=== PATIENT | female | born 1995 | race Caucasian/White ===

== ENCOUNTER 2018-12-15 03:32 | Emergency (ER) | payer MEDICAID, OTHER ==
[2018-12-15] MEDS ORDERED: NS 1,000 ML IV ONE (03:48)
[2018-12-15] MEDS ORDERED: LORazepam 2 MG/ML INJ IVP ONE (03:48)
[2018-12-15 06:05] VITALS: BP 110/75
--- NOTE | 2018-12-15 06:09 | EDPHY ---
H & P Stated Complaint: Cocaine and anxiety Time Seen by Provider: 12/15/18 03:35 HPI/ROS: HPI The patient presents with palpitations, sensation of impending doom, shortness of breath for the last 2-3 hours. Symptoms have been continuous and are getting somewhat worse. The patient drink about 2-3 alcoholic drinks last night. She then used cocaine several occasions, intranasally and orally throughout the evening into the microbiology technician. She used about 0.5 g total she believes. She then used a dab of marijuana. After the marijuana, she began to feel palpitations, lightheaded, like she might . She tried to go from a friend's house to her house and a taxi, however asked to be taken to the hospital because she was worried that she was going to . She has used both cocaine and marijuana in the past, however admits to using more cocaine than usual. REVIEW OF SYSTEMS 10 systems were reviewed and negative with the exception of the elements mentioned in the history of present illness. PMHx: Denies diabetes or hypertension Soc Hx: Currently employed, lives with roommates, occasional smoker, alcohol use, cocaine use, marijuana use PHYSICAL General Appearance: Alert, anxious, rambling Eyes: Pupils equal and round no pallor or injection ENT, Mouth: Mucous membranes dry Respiratory: There are no retractions, lungs are clear to auscultation Cardiovascular: Tachycardic rate and regular rhythm Gastrointestinal: Abdomen is soft and non-tender, no masses, bowel sounds normal Neurological: A&O, moves all extremities Skin: Warm and dry, no rashes Musculoskeletal: Neck is supple non tender Extremities: symmetrical, full range of motion Psychiatric: Patient is oriented X 3, she is anxious though not agitated Source: Patient Exam Limitations: Intoxication - Personal History LMP (Females 10-55): Now Current Tetanus/Diphtheria Vaccine: Yes Current Tetanus Diphtheria and Acellular Pertussis (TDAP): Yes - Medical/Surgical History Hx Asthma: Yes Hx Chronic Respiratory Disease: No Hx Diabetes: No Hx Cardiac Disease: No Hx Renal Disease: No Hx Cirrhosis: No Hx Alcoholism: No Hx HIV/AIDS: No Hx Splenectomy or Spleen Trauma: No Other PMH: asthma - Social History Smoking Status: Current some day smoker Constitutional: Initial Vital Signs Temperature (C) 36.7 C 12/15/18 03:35 Heart Rate 167 H 12/15/18 03:35 Respiratory Rate 26 H 12/15/18 03:35 Blood Pressure 135/84 H 12/15/18 03:35 O2 Sat (%) 99 12/15/18 03:35 O2 Delivery Mode Room Air Allergies/Adverse Reactions: No Known Allergies Allergy (Unverified 12/15/18 04:00) Home Medications: Medication Instructions Recorded Control Pill 12/15/18 Medical Decision Making - Diagnostics EKG Interpretation: EKG: Complete interpretation has been separately recorded in the [employer] archive. Summary impression: Sinus tachycardia Differential Diagnosis: This is a 23-year-old female who presents with palpitations, shortness of breath , sensation of impending doom after using alcohol, cocaine large amount, marijuana over the last several hours. She says she has had anxiety attacks before and this feels similar. She was worried about her heart because of the cocaine use. EKG was performed and did demonstrate sinus tachycardia. She was given IV fluids and Ativan with complete resolution in her symptoms. She felt well enough to go home and was discharged. I have considered ACS given her cocaine use, however given rapid improvement in her symptoms here, further testing was not performed. I suspect her drug use tonight led to an anxiety attack which caused her symptoms. - Data Points Medications Given: Discontinued Medications Sodium Chloride (Ns) 1,000 mls @ 0 mls/hr IV EDNOW ONE; Wide Open PRN Reason: Protocol Stop: 12/15/18 03:49 Last Admin: 12/15/18 03:52 Dose: 1,000 mls Lorazepam (Ativan Injection) 1 mg IVP EDNOW ONE Stop: 12/15/18 03:49 Last Admin: 12/15/18 03:52 Dose: 1 mg Departure - Departure Disposition: Home, Routine, Self-Care Clinical Impression: Cocaine abuse, Marijuana abuse, Palpitations, Anxiety Condition: Good Instructions: Polysubstance Abuse (ED) Additional Instructions: You should stop using cocaine and marijuana. These can lead to panic attacks. They can also cause other serious heart problems. Please follow-up with your primary care doctor at [facility] in 1-2 days. Referrals: [facility] ,. [[facility]m Groups for Call Sched] - As per Instructions
--- NOTE | 2018-12-16 06:55 | CPEKG ---
Test Reason : OPEN Blood Pressure : / mmHG Vent. Rate : 139 BPM Atrial Rate : 139 BPM P-R Int : 113 ms QRS Dur : 100 ms QT Int : 323 ms P-R-T Axes : 069 079 029 degrees QTc Int : 491 ms Sinus tachycardia Probable left atrial enlargement Minimal ST depression, inferior leads Borderline prolonged QT interval Confirmed by Shannan Marion ([id number]) on 12/16/2018 6:55:12 AM Referred By: Shannan Marion Confirmed By:Shannan Marion
== END 2018-12-15 06:20 | disposition home or self-care (01) ==
DX: F14.10 Cocaine abuse, uncomplicated (principal); F12.10 Cannabis abuse, uncomplicated; R00.2 Palpitations; F41.9 Anxiety disorder, unspecified; E86.9 Volume depletion, unspecified; F17.200 Nicotine dependence, unspecified, uncomplicated
CPT/HCPCS: 96374; J2060